=== PATIENT | female | born 1990 ===

== ENCOUNTER 2019-11-29 11:30 | Inpatient (IN) | payer SELFPAY ==
[2019-11-29] VITALS (8 sets, daily range): BP systolic 89–114; BP diastolic 53–79; PULSE 88–116; RESP 16–19; TEMP 36.7–37.6; O2SAT 95–99
--- NOTE | 2019-11-29 11:35 | ECG_ITS ---
[facility] Test Date: 2019-11-29 Pat Name: Misty Edwards Department: Room: Gender: Female Space [employer] Faculty Member: : 1990 Requested By: Suma Osborn Order Number: [id number] Garsia MD: Cheryl Quiroga M.D. Measurements Intervals [place] Rate: 101 P: 70 RI: 137 QRS: 65 QRSD: 95 T: 38 QT: 346 QTc: 449 Interpretive Statements SINUS TACHYCARDIA NONSPECIFIC ST & T-WAVE ABNORMALITY No previous ECG available for comparison Electronically Signed On 11-30-2019 7:53:36 CDT by Cheryl Quiroga M.D. [email or web address]
--- NOTE | 2019-11-29 11:36 | ED_ITS ---
HPI - General Adult General: Chief complaint: General Medical Stated complaint: ATE MUSHROOMS Time Seen by Provider: 11/29/19 11:31 Source: patient and EMS Mode of arrival: EMS Limitations: other (Patient withdrawn) History of Present Illness: HPI narrative: Misty is a nice 29-year-old female who comes in after she ingested mushrooms from the yard. Patient is homeless and stated that she took these to get hungry but then also quickly states she does not care if she dies. Patient stated she take the mushrooms between 7 and 830 this morning. About 40 minutes after ingesting the mushroom she began to feel nauseated and then 1 to 1-1/2 hours after she ingested them she began to have significant vomiting and diarrhea. She does not report any hallucinations, fever, chills, chest pain or shortness of breath. Patient does not report ingesting any other substances or drugs. Patient is very withdrawn and not very communicative. Associated symptoms: Reports nausea and vomiting; Deny chest pain, dyspnea, headache(s), rash, palpitations or syncope Review of Systems Const: Denies: fever(s) Eyes: Denies: change in vision or blurry vision ENMT: Denies: throat pain or hoarseness Card: Denies: chest pain, palpitations, syncope, pre-syncope or dyspnea on exertion Resp: Denies: dyspnea, productive cough or non-productive cough GI: Reports: abdominal pain, nausea, vomiting and diarrhea : Denies: flank pain, dysuria, urinary frequency or urinary urgency Musc: Denies: neck pain, back pain or extremity pain Skin/Breast: Denies: rash or pruritus Neuro: Denies: headache(s), numbness in extremities, weakness in extremities or dizziness [facility] ED PFSH: Medical History (Updated 11/29/19 @ 13:50 by Suma Faulkner) No pertinent past medical history Physical Exam Const: COMMON NORMALS: no acute distress, patient oriented x3, no limitations, healthy appearing and well nourished GENERAL APPEARANCE: cooperative, well kempt and well developed HENMT: COMMON NORMALS: normocephalic, atraumatic, external ears normal, EAC's normal and Normal external nose present HEAD & SCALP: normal to inspection, normocephalic and atraumatic FACE & SINUS: normal facial exam and face symmetric NOSE: Normal external nose present and Normal nares present EXTERNAL EAR: Yes external ears normal EXTERNAL AUDITORY CANAL: EAC's normal MOUTH: Normal oral and palatal mucosa present, lip normal and tongue normal Eye: COMMON NORMALS: Equal, round and reactive pupils present and conjunctivae normal GENERAL EYE: appearance normal, both eyes and all related structures ALIGNMENT: Yes alignment normal PERIORBITAL: periorbital findings normal EYELID: eyelids normal CONJUNCTIVA: Yes conjunctivae normal SCLERA: sclerae normal PUPIL: Yes Equal, round and reactive pupils present Neck/C-Spine: COMMON NORMALS: full ROM, no lymphadenopathy, supple, no meningeal signs and no JVD GENERAL: Yes normal visual inspection and Yes trachea midline Chest: COMMONS NORMALS: normal inspection of the chest and normal palpation of entire chest wall Resp: COMMON NORMALS: normal respiratory effort, No retractions, No use of accessory muscles and clear to auscultation bilaterally EFFORT & INSPECTION: Yes able to speak in complete sentences and Yes symmetric chest movement AUSCULTATION: clear to auscultation bilaterally, no crackles, no rales, no rhonchi and no wheezes Cardio: COMMON NORMALS: no JVD, regular rate, regular rhythm, S1 normal heart sound present and S2 normal heart sound present RATE: regular rate RHYTHM: regular rhythm HEART SOUNDS: S1 normal heart sound present, S2 normal heart sound present, no click, no gallops, no murmurs, no rubs and abnormal split S2 GI: COMMON NORMALS: Soft to palpation and No hepatosplenomegaly present PALPATION: Yes Soft to palpation, No Tenderness to palpation present (GI), No Guarding due to palpation present (GI), No Rigid due to palpation, Yes No hepatosplenomegaly present, No Hernia present, No Palpable mass present and No Pulsatile mass present : COMMON NORMALS: Yes no CVA tenderness BLADDER/KIDNEY EXAM: Yes no CVA tenderness EXTERNAL FEMALE EXAM: No Hernia present Back/Pelvis: COMMON NORMALS: no CVA tenderness, thoracic and lumbar spine normal to inspection, no thoracic nor lumbar tenderness and thoraco-lumbar ROM normal Extremity: COMMON NORMALS: normal to inspection, full ROM, capillary refill normal, no joint enlargement, no clubbing, cyanosis or edema and no calf tenderness Neuro: COMMON NORMALS: patient oriented x3, CN's II-XII intact bilaterally, moves all extremities, no focal motor deficits and no sensory deficits noted MENINGEAL SIGNS: Yes no meningeal signs SPEECH: speech normal Psych: COMMON NORMALS: mental status grossly normal, Normal thought process present, cooperative, normal affect, speech normal and activity/motor behavior normal APPEARANCE: Yes well kempt SPEECH: Yes normal speech THOUGHT PROCESS: Normal thought process present Skin: COMMON NORMALS: no rashes or lesions noted, turgor normal, no jaundice, no petechiae and no mottling GENERAL SKIN EXAM: no rashes or lesions noted and turgor normal Course Vital Signs: Vital signs: Vital Signs Temperature 98.1 F 11/29/19 11:31 Pulse Rate 107 H 11/29/19 12:25 Respiratory Rate 18 11/29/19 12:25 Blood Pressure 114/78 11/29/19 12:25 Pulse Oximetry 96 11/29/19 12:25 MDM - General Adult MDM Narrative: Medical decision making narrative: Misty's work-up here is unremarkable. She continues to have copious amount of diarrhea that is nonbloody. She has stopped vomiting. I reviewed the case with both Drs. Byrd and Dr. De La Vega. They agreed to admit and consult respectively. Concern at this time is that as she ate 2 different types of mushrooms that she may have a delayed onset and needs to be observed. Also with the amount of diarrhea that she is having she would not be a good candidate to go directly to the neuropsychiatric unit. Patient is continuously of IV fluids and she will go to the floor. She has been placed under 96-hour hold. Lab Data: Attestation: I reviewed the patient's lab results. Labs: Lab Results 11/29/19 11/29/19 11/29/19 Range/Units 11:40 11:40 11:40 WBC 4.0 (4.0-10.0) 10^3/ uL RBC 5.99 H (4.1-5.3) 10^6/u L Hgb 16.3 H (11.5-15.3) g/dL Hct 51.4 H (37.0-47.0) % MCV 85.8 (81-99) fL MCH 27.2 L (28.0-34.0) pg MCHC 31.7 (30.0-36.0) g/dL RDW 13.0 (12.1-15.1) % Plt Count 318 (130-400) 10^3/c mm MPV 11.7 H (7.4-10.4) fL Neut % (Auto) 77.1 % Lymph % (Auto) 19.5 % [place] % (Auto) 2.8 % Eos % (Auto) 0.3 % Baso % (Auto) 0.3 % Neut # (Auto) 3.08 (1.8-7.7) 10^3/u L Lymph # (Auto) 0.8 (0.8-4.8) 10^3/u L [place] # (Auto) 0.1 L (0.2-0.9) 10^3/u L Eos # (Auto) 0.0 (0.0-0.8) 10^3/u L Baso # (Auto) 0.0 (0.0-0.1) 10^3/u L Nucleated RBC % (a uto) 0 % Nucleated RBCs # 0.0 /100WBC PT 12.90 (12.1-14.9) SECO NDS INR 0.94 (0.8-1.2) APTT 26.3 (23.9-36.7) SECO NDS Specimen Type Sample Site ABG pH (7.35-7.45) ABG pCO2 (35-45) mmHg ABG pO2 (80.0-100.0) mmH g ABG HCO3 (22-26) mmol/L ABG O2 Saturation ABG Base Excess (-2.0-2.0) mmol/ L [place] Test A-a O2 Gradient (5-10) mmHg Hematocrit (37-47) % Hgb O2 Saturation (95-100) % Carboxyhemoglobin (0.4-20.1) %THgb Methemoglobin (0.4-1.5) % Total Hemoglobin (12-16) g/dL Ionized Calcium (1.1-1.4) mmol/L O2 Delivery Device FiO2 % Manager Presentation ID Sodium 143 (136-145) mmol/L Potassium 3.4 L (3.5-5.1) mmol/L Chloride 105 (98-107) mmol/L Carbon Dioxide 20 L (22-29) mmol/L Anion Gap 21.4 H (5-19) BUN 11 (6-20) mg/dL Creatinine 0.9 (0.5-0.9) mg/dL GFR Calculation 75.1 L (90-130) mL/min Glucose 101 (65-115) mg/dL Calculated Osmolal ity 292 (285-295) mOsm/k g Lactic Acid (0.5-2.2) mmol/L Calcium 10.6 H (8.5-10.5) mg/dL Magnesium 2.2 (1.7-2.3) mg/dL Total Bilirubin 1.2 (0.15-1.2) mg/dL AST 26 (0-32) U/L ALT 18 (0-33) U/L Alkaline Phosphata se 57 (35-105) IU/L Creatine Kinase 61 (26-192) U/L Total Protein 8.6 (6.6-8.7) g/dL Albumin 5.2 (3.5-5.2) g/dL Globulin 3.4 (1.3-4.6) g/dL Lipase 46 (13-60) U/L HCG, Qual (Negative) Salicylates < 0.3 L (3-10) mg/dL Acetaminophen < 5.0 L (10-30) ug/mL Phenytoin (10-20) ug/mL Valproic Acid (50-100) ug/mL Carbamazepine (4.0-12.0) ug/mL [place] (0.6-1.2) mmol/L Ethyl Alcohol < 10 (0-10) mg/dL Serum Ketones Negative (Negative) 11/29/19 11/29/19 11/29/19 Range/Units 11:40 11:50 11:50 WBC (4.0-10.0) 10^3/ uL RBC (4.1-5.3) 10^6/u L Hgb (11.5-15.3) g/dL Hct (37.0-47.0) % MCV (81-99) fL MCH (28.0-34.0) pg MCHC (30.0-36.0) g/dL RDW (12.1-15.1) % Plt Count (130-400) 10^3/c mm MPV (7.4-10.4) fL Neut % (Auto) % Lymph % (Auto) % [place] % (Auto) % Eos % (Auto) % Baso % (Auto) % Neut # (Auto) (1.8-7.7) 10^3/u L Lymph # (Auto) (0.8-4.8) 10^3/u L [place] # (Auto) (0.2-0.9) 10^3/u L Eos # (Auto) (0.0-0.8) 10^3/u L Baso # (Auto) (0.0-0.1) 10^3/u L Nucleated RBC % (a uto) % Nucleated RBCs # /100WBC PT (12.1-14.9) SECO NDS INR (0.8-1.2) APTT (23.9-36.7) SECO NDS Specimen Type Sample Site ABG pH (7.35-7.45) ABG pCO2 (35-45) mmHg ABG pO2 (80.0-100.0) mmH g ABG HCO3 (22-26) mmol/L ABG O2 Saturation ABG Base Excess (-2.0-2.0) mmol/ L [place] Test A-a O2 Gradient (5-10) mmHg Hematocrit (37-47) % Hgb O2 Saturation (95-100) % Carboxyhemoglobin (0.4-20.1) %THgb Methemoglobin (0.4-1.5) % Total Hemoglobin (12-16) g/dL Ionized Calcium (1.1-1.4) mmol/L O2 Delivery Device FiO2 % Manager Presentation ID Sodium (136-145) mmol/L Potassium (3.5-5.1) mmol/L Chloride (98-107) mmol/L Carbon Dioxide (22-29) mmol/L Anion Gap (5-19) BUN (6-20) mg/dL Creatinine (0.5-0.9) mg/dL GFR Calculation (90-130) mL/min Glucose (65-115) mg/dL Calculated Osmolal ity (285-295) mOsm/k g Lactic Acid 1.9 (0.5-2.2) mmol/L Calcium (8.5-10.5) mg/dL Magnesium (1.7-2.3) mg/dL Total Bilirubin (0.15-1.2) mg/dL AST (0-32) U/L ALT (0-33) U/L Alkaline Phosphata se (35-105) IU/L Creatine Kinase (26-192) U/L Total Protein (6.6-8.7) g/dL Albumin (3.5-5.2) g/dL Globulin (1.3-4.6) g/dL Lipase (13-60) U/L HCG, Qual Negative (Negative) Salicylates (3-10) mg/dL Acetaminophen (10-30) ug/mL Phenytoin 0.8 L (10-20) ug/mL Valproic Acid 2.8 L (50-100) ug/mL Carbamazepine 2.0 L (4.0-12.0) ug/mL [place] 0.1 L (0.6-1.2) mmol/L Ethyl Alcohol (0-10) mg/dL Serum Ketones (Negative) 11/29/19 Range/Units 12:05 WBC (4.0-10.0) 10^3/ uL RBC (4.1-5.3) 10^6/u L Hgb (11.5-15.3) g/dL Hct (37.0-47.0) % MCV (81-99) fL MCH (28.0-34.0) pg MCHC (30.0-36.0) g/dL RDW (12.1-15.1) % Plt Count (130-400) 10^3/c mm MPV (7.4-10.4) fL Neut % (Auto) % Lymph % (Auto) % [place] % (Auto) % Eos % (Auto) % Baso % (Auto) % Neut # (Auto) (1.8-7.7) 10^3/u L Lymph # (Auto) (0.8-4.8) 10^3/u L [place] # (Auto) (0.2-0.9) 10^3/u L Eos # (Auto) (0.0-0.8) 10^3/u L Baso # (Auto) (0.0-0.1) 10^3/u L Nucleated RBC % (a uto) % Nucleated RBCs # /100WBC PT (12.1-14.9) SECO NDS INR (0.8-1.2) APTT (23.9-36.7) SECO NDS Specimen Type Arterial Sample Site Brachial, right ABG pH 7.36 (7.35-7.45) ABG pCO2 26.5 L (35-45) mmHg ABG pO2 106.0 H (80.0-100.0) mmH g ABG HCO3 15.0 L (22-26) mmol/L ABG O2 Saturation 98.9 ABG Base Excess -8.3 L (-2.0-2.0) mmol/ L [place] Test Pos A-a O2 Gradient 1.3 L (5-10) mmHg Hematocrit 52.9 H (37-47) % Hgb O2 Saturation 97.5 (95-100) % Carboxyhemoglobin 0.8 (0.4-20.1) %THgb Methemoglobin 0.5 (0.4-1.5) % Total Hemoglobin 17.3 H (12-16) g/dL Ionized Calcium 1.3 (1.1-1.4) mmol/L O2 Delivery Device Room air FiO2 21.0 % Manager Presentation ID [place] Sodium 141.0 (136-145) mmol/L Potassium 3.5 (3.5-5.1) mmol/L Chloride (98-107) mmol/L Carbon Dioxide (22-29) mmol/L Anion Gap (5-19) BUN (6-20) mg/dL Creatinine (0.5-0.9) mg/dL GFR Calculation (90-130) mL/min Glucose 98.0 (65-115) mg/dL Calculated Osmolal ity (285-295) mOsm/k g Lactic Acid (0.5-2.2) mmol/L Calcium (8.5-10.5) mg/dL Magnesium (1.7-2.3) mg/dL Total Bilirubin (0.15-1.2) mg/dL AST (0-32) U/L ALT (0-33) U/L Alkaline Phosphata se (35-105) IU/L Creatine Kinase (26-192) U/L Total Protein (6.6-8.7) g/dL Albumin (3.5-5.2) g/dL Globulin (1.3-4.6) g/dL Lipase (13-60) U/L HCG, Qual (Negative) Salicylates (3-10) mg/dL Acetaminophen (10-30) ug/mL Phenytoin (10-20) ug/mL Valproic Acid (50-100) ug/mL Carbamazepine (4.0-12.0) ug/mL [place] (0.6-1.2) mmol/L Ethyl Alcohol (0-10) mg/dL Serum Ketones (Negative) EKG Data^: EKG 1: Attestation: I personally reviewed and interpreted this EKG as follows: EKG interpretation date: 11/29/19 EKG interpretation time: 11:52 Interpretation: Normal sinus rhythm at 101 beats a minute, no blocks, normal intervals, nonspecific ST-T wave changes. Discharge Plan Discharge Patient Disposition: Admitted As Inpatient Admit Provider: Esme Byrd Clinical Impression: Mushroom poisoning Condition: Stable Coding Level of Care Code ED Linen Sorter for Chg Fwd Exam Comprehensive
[2019-11-29 12:00] LABS: Basophils % 0.3 %; Eosinophils % 0.3 %; Hematocrit 51.4 % (37.0-47.0); Hemoglobin 16.3 g/dL (11.5-15.3); Lymphocytes # 0.8 10^3/uL (0.8-4.8); Lymphocytes % 19.5 %; Mean Corpuscular HGB Conc 31.7 g/dL (30.0-36.0); Mean Corpuscular Hemoglobin 27.2 pg (28.0-34.0); Mean Corpuscular Volume 85.8 fL (81-99); Mean Platelet Volume 11.7 fL (7.4-10.4); Monocytes # 0.1 10^3/uL (0.2-0.9); Monocytes % 2.8 %; Neutrophils # 3.08 10^3/uL (1.8-7.7); Neutrophils % 77.1 %; Nucleated Red Blood Cells % 0 %; Platelet Count 318 10^3/cmm (130-400); Red Blood Count 5.99 10^6/uL (4.1-5.3)
[2019-11-29 12:14] LABS: INR 0.94 (0.8-1.2)
[2019-11-29 12:15] LABS: Partial Thromboplastin Time 26.3 SECONDS (23.9-36.7)
[2019-11-29 12:18] LABS: Alanine Aminotransferase 18 U/L (0-33); Albumin Level 5.2 g/dL (3.5-5.2); Alkaline Phosphatase 57 IU/L (35-105); Blood Urea Nitrogen 11 mg/dL (6-20); Calcium 10.6 mg/dL (8.5-10.5); Carbon Dioxide 20 mmol/L (22-29); Chloride 105 mmol/L (98-107); Creatine Phosphokinase 61 U/L (26-192); Globulin 3.4 g/dL (1.3-4.6); Glomerular Filtration Rate 75.1 mL/min (90-130); Glucose 101 mg/dL (65-115); Ketone (Acetest) Serum Negative (Negative); Lipase 46 U/L (13-60); Magnesium 2.2 mg/dL (1.7-2.3); Osmolality Calculated 292 mOsm/kg (285-295); Sodium 143 mmol/L (136-145); Total Bilirubin 1.2 mg/dL (0.15-1.2); Total Protein 8.6 g/dL (6.6-8.7)
[2019-11-29 12:19] LABS: Lactic Sepsis W/Reflex 1.9 mmol/L (0.5-2.2)
[2019-11-29 12:19] LABS: ABG PCO2 26.5 mmHg (35-45); ABG PH Result 7.36 (7.35-7.45); Alveolar-Arterial Oxygen Gradi 1.3 mmHg (5-10); Arterial Blood Gas Hematocrit 52.9 % (37-47); Base Excess ABG -8.3 mmol/L (-2.0-2.0); Blood Gas Allen Test Pos; Blood Gas Operator Identificat MONRO; Blood Gas Sample Site Brachial, right; Blood Gas Sample Type Arterial; Carboxyhemoglobin 0.8 %THgb (0.4-20.1); HGB O2 Sat 97.5 % (95-100); Ionized Calcium Level - ABG 1.3 mmol/L (1.1-1.4); Methemoglobin 0.5 % (0.4-1.5); Oxygen Device ROOM AIR; Oxygen Saturation ABG 98.9; Potassium Level - ABG 3.5 mmol/L (3.5-5.0); Total Hemoglobin 17.3 g/dL (12-16)
[2019-11-29 12:20] LABS: HCG, Serum Qual Negative (Negative)
[2019-11-29 12:24] LABS: Acetaminophen < 5.0 ug/mL (10-30); Alcohol Level < 10 mg/dL (0-10); Salicylate < 0.3 mg/dL (3-10)
[2019-11-29] MEDS: sodium chloride 0.9% 1,000 ML 999 ML IV (12:24)
[2019-11-29] MEDS: sodium chloride 0.9% 1,000 ML 100 ML IV (12:24)
[2019-11-29 12:25] LABS: Anion Gap 21.4 (5-19); Aspartate Amino Transferase 26 U/L (0-32); Potassium 3.4 mmol/L (3.5-5.1)
[2019-11-29 12:29] LABS: Lithium 0.1 mmol/L (0.6-1.2); Phenytoin Dilantin 0.8 ug/mL (10-20); Valproic Acid Level 2.8 ug/mL (50-100)
[2019-11-29] MEDS: lactated ringers 1,000 ML 999 ML IV ×2 (13:10)
--- NOTE | 2019-11-29 13:20 | PC.NURSE ---
Patient refused IV k d/t pain, order received for PO K 40meq.
[2019-11-29] MEDS: potassium chloride ER 10 mEq Tablet 40 MEQ PO (13:27)
--- NOTE | 2019-11-29 16:10 | PM.PSYCN ---
Providers/Reason for Consult Consulting Physican/Specialty*: Ceferino De La Vega M.D./Psychiatry Reason for Consult*: Ingested poisonous mushrooms, stated she does not care if she dies. Attending Physician: Esme Byrd MD Psych Consult HPI History of Present Illness Misty Edwards is a 29 year old female who has been homeless for a long time. She is wandered from the [facility] down here. She has had she had certain issues. I asked her what they might be (e. g., chronic psychiatric illness for example, addiction, etc.) and she said, I want to talk about that right now. She would not even discuss her statement to Dr. Kearney about not caring if she lived or . I reviewed the poison control printout on mushrooms. She is probably going to be ready to come down tomorrow and I confirmed that with Dr. Byrd. Review of Systems Narrative: Const: Denies: fever(s) Eyes: Denies: change in vision or blurry vision ENMT: Denies: throat pain or hoarseness Card: Denies: chest pain, palpitations, syncope, pre-syncope or dyspnea on exertion Resp: Denies: dyspnea, productive cough or non-productive cough GI: Reports: abdominal pain, nausea, vomiting and diarrhea : Denies: flank pain, dysuria, urinary frequency or urinary urgency Musc: Denies: neck pain, back pain or extremity pain Skin/Breast: Denies: rash or pruritus Neuro: Denies: headache(s), numbness in extremities, weakness in extremities or dizziness Meds Current Medications: Current Medications Generic Name Dose Route Start Last Admin Trade Name Freq PRN Reason Stop Dose Admin Sodium Chloride 1,000 mls @ 100 m ls/hr 11/29/19 11:45 11/29/19 12:24 Sodium Chloride 0.9% IV 100 mls/hr .Q10H FELIPA Administration PFSH NPU PFSH: Medical History (Updated 11/29/19 @ 16:32 by Ceferino De La Vega) Depressive disorder, not elsewhere classified No pertinent past medical history Other Psychiatric History: Other Psychiatric History: The patient said she did have treatment in the past but is unwilling to discuss this in detail. I told her would be bringing her down to psychiatry and she is accepting of this. Mental Status Exam MSE Comments: This is a 29-year-old female who is well-kempt, cooperative and without any agitation or bizarre behavioral indicia. Mood appears to be despondent without any agitation. Affect is flat to the point of numbness. Thought processes are integrated and free of any racing, blocking or looseness of association. I do not see overt symptoms of psychosis, such as hallucination, delusion or ideas of reference. However she is very guarded and restricts what she reveals about herself. She may be severely schizoid or even paranoid delusional disorder but who knows? More time with this patient is definitely warranted. She may have significant insight and judgment. It is difficult to discern at this time, when life itself is of no import to her. Vitals/I&O/Wt Last Vital Signs Temp 98.4 F 11/29/19 15:11 Pulse 104 H 11/29/19 15:11 Resp 18 11/29/19 15:11 BP 98/58 11/29/19 15:11 Pulse Ox 96 11/29/19 15:11 11/29/19 11/29/19 11/29/19 07:59 15:59 23:59 Intake Total 1007.5 Balance 1007.5 Weight last 48 hrs Weight 169 lb A&P Assessment and plan (1) Depressive disorder, not elsewhere classified: Further diagnostic interviews and formulation of a treatment plan are indicated. The risk to her is unknown but not zero. Accordingly, Dr. Kearney's affidavit is wholly appropriate and we will be happy to accept her on psychiatry once she is medically stable. Status: Acute (2) Mushroom poisoning: The patient is in good hands, managed by Dr. Byrd Status: Acute Qualifiers: Encounter type: initial encounter Injury intent: undetermined intent Qualified Code(s): T62.0X4A - Toxic effect of ingested mushrooms, undetermined, initial encounter Involuntary Hold Information 96 Hour Hold: Comments: Dr. Kearney has made out an affidavit. Attestations NPU Medical Necessity Statement*: This is a mystery wrapped in a conundrum hidden within an enigma. I anticipate at least 7 midnights additional hospital stay. Time Spent in Patient Care: Greater than 35 minutes (>than 50% of time spent in counselling and/or direct pt care on unit). Coding Level of Care Code Acute Portfolio Management Marketing for Chg Fwd Diagnoses Depressive disorder, not elsewhere classified F32.9 Mushroom poisoning T62.0X4A Encounter type: initial encounter Injury intent: undetermined intent
--- NOTE | 2019-11-29 16:27 | P.HP_ITS ---
Providers/Chief Complaint Admitting Physician: Esme Byrd MD Chief Complaint: ATE MUSHROOMS History of Present Illness Misty Edwards is a 29 year old female without any known past medical comorbidities, currently homeless due to a strained relationship with her father and states that when she does not live with him. She said she was feeling hungry today, saw some mushrooms growing in her garden and decided to eat them. She did not collect them. She did not wash them. She has never taken these before. Shortly thereafter she started to feel sick with multiple episodes of vomiting diarrhea and abdominal pain which felt as cramping pain. She presented to the ER because of these symptoms. She was dehydrated upon presentation with poor skin turgor. Her blood pressure has been systolic in the 90s and tachycardic with heart rate around 100-1 20. She was noted to have hemoglobin of 16.3, likely secondary to concentration from GI losses. Mild hypokalemia with potassium 3.4. Anion gap of 21.4 and metabolic acidosis on labs. Calcium is mildly elevated at 10.6. Serum ketones are negative. Ethyl alcohol level less than 10. Urine drug screen remains pending. Review of Systems General: Reports: 10 or more systems reviewed and unremarkable except in HPI and below Const: Denies: fever(s), chills or body aches Eyes: Denies: change in vision, blurry vision or photophobia ENMT: Reports: hoarseness; Denies: throat pain, enlarged tonsils, odynophagia or nasal congestion Card: Denies: chest pain, palpitations, irregular heart rhythm, edema, swelling of feet/ankles, lightheadedness, pre-syncope, dyspnea on exertion or orthopnea Resp: Denies: dyspnea, productive cough, non-productive cough, wheezing, stridor, pain on inspiration, change in phlegm color, hemoptysis or chest congestion GI: Denies: abdominal pain, nausea, vomiting, hematemesis, coffee ground emesis, dysphagia, heartburn, diarrhea, constipation, GI cramping, change in stool character, hematochezia or melena : Denies: flank pain, difficulty voiding, dysuria, urinary frequency, urinary urgency, urinary hesitancy or hematuria Musc: Denies: neck pain, back pain, extremity pain, joint swelling, joint warmth or deformity Neuro: Denies: headache(s), numbness in extremities, weakness in extremities, sensory changes, difficulty walking, frequent falls, dizziness, vertigo, behavioral changes, Slurred speech present or seizure-like activity Psych: Denies: anxiety, depression, suicidal ideation or homicidal ideation Endo: Denies: polyuria, polydipsia, tired all the time, cold intolerance or hot flashes Keegan/Lymph: Denies: easy bruising or easy bleeding Medications/Allergies Home Medications Medication Instructions Recorded Confirmed Last Taken Type No Known Home Medications 11/29/19 11/29/19 Unknown History Allergies Allergy/AdvReac Type Severity Reaction Status Date / Time No Known Allergies Allergy Unverified 11/29/19 12:43 PFSH Acute PFSH: Medical History No pertinent past medical history Female Reproductive History: Date of last menstrual period: 11/17/19 Vitals/I&O/Wt Last Vital Signs Temp 98.4 F 11/29/19 15:11 Pulse 104 H 11/29/19 15:11 Resp 18 11/29/19 15:11 BP 98/58 11/29/19 15:11 Pulse Ox 96 11/29/19 15:11 11/29/19 11/29/19 11/29/19 06:59 14:59 22:59 Intake Total 1007.5 / 1007.5 Balance 1007.5 / 1007.5 Weight last 48 hrs Weight 76.657 kg Physical Exam Narrative: EXAM NARRATIVE: GEN: Awake, alert and oriented, no acute distress, dehydrated, disheveled CVS: S1S2 N RS: CTA B/L Abd: Soft, nt/nd , bs+ NARCOTICS AGENT: no focal neuro deficits Data : 11/29/19 11:40 11/29/19 11:40 A&P Assessment and plan (1) Mushroom poisoning: Status: Acute Qualifiers: Encounter type: initial encounter Injury intent: undetermined intent Qualified Code(s): T62.0X4A - Toxic effect of ingested mushrooms, undetermined, initial encounter Additional A&P Information # Acute gastroenteritis vs mushroom poisoning Continue supportive care with IV hydration. Continue fluids with D5 half NS with added KCl. Zofran for nausea control Check enteric panel and C. difficile PCR, patient has not had any current bowel movement since moving up to the floors. Lactic acidosis and high anion gap likely secondary to dehydration, expected to improve with hydration. Recheck labs in the a.m. Denies any suicidal ideation, however states that she may have been passively trying to harm herself. Dr. De La Vega was consulted from the ER and has evaluated the patient. Plan is to transfer her to n.p.o. once she is stable from a medicine perspective. Full code DVT ppx: low risk Attestations Medical Necessity Statement*: less than one midnight anticipated for management of acute gastroenteritis, iv hydration Coding Level of Care Code Acute Motors And Generators Inspector for [facility] Fwd Diagnoses Mushroom poisoning T62.0X4A Encounter type: initial encounter Injury intent: undetermined intent
[2019-11-29] MEDS: ondansetron 4 MG Tablet PO (17:13)
[2019-11-29] MEDS: D5-NS 0.45% + KCL 20 mEq 20 MEQ/1,000 ML BAG 100 MEQ IV (17:16)
[2019-11-29 18:11] LABS: Urine Appearance SL Hazy (CLEAR); Urine Color Yellow (Yellow); pH Urine 5 (5-7)
[2019-11-29 18:12] LABS: Add Urine Microscopic? YES; Bilirubin Urine 1+ (NEGATIVE); Blood Urine Neg (Negative); Glucose Urine UA Norm (Normal); Ketones Urine 3+ (Negative); Leukocyte Esterase Urine 1+ (Negative); Nitrate Urine Negative (Negative); Protein Urine Neg (Negative); Urobilinogen Urine Norm (Negative)
[2019-11-29 18:13] LABS: Add Urine Culture? No; Amphetamines Screen Urine Negative (Negative); Bacteria Urine 2+; Barbiturates Screen Urine Negative (Negative); Benzodiazepines Screen Urine Negative (Negative); Cocaine Screen Urine Negative (Negative); Opiate Screen Urine Negative (Negative); PCP Screen Urine Negative (Negative); THC Screen Urine Negative (Negative)
[2019-11-30] VITALS: BP 91/55; PULSE 87; RESP 19; TEMP 37; O2SAT 96
[2019-11-30] MEDS: ondansetron 2 mg/ML SDV 2 mL 4 MG IVP (00:22)
[2019-11-30 03:54] VITALS: BP 94/58; PULSE 97; RESP 20; TEMP 37.2; O2SAT 95
[2019-11-30] MEDS: D5-NS 0.45% + KCL 20 mEq 20 MEQ/1,000 ML BAG 100 MEQ IV (04:35)
[2019-11-30 05:37] LABS: Basophils % 0.2 %; Eosinophils % 0.1 %; Hemoglobin 12.6 g/dL (11.5-15.3); Lymphocytes # 0.6 10^3/uL (0.8-4.8); Lymphocytes % 6.6 %; Mean Corpuscular HGB Conc 32.3 g/dL (30.0-36.0); Mean Corpuscular Hemoglobin 27.2 pg (28.0-34.0); Mean Corpuscular Volume 84.1 fL (81-99); Mean Platelet Volume 10.8 fL (7.4-10.4); Monocytes # 0.4 10^3/uL (0.2-0.9); Monocytes % 4.2 %; Neutrophils # 7.97 10^3/uL (1.8-7.7); Neutrophils % 88.6 %; Nucleated Red Blood Cells % 0 %; Platelet Count 239 10^3/cmm (130-400); Red Blood Count 4.64 10^6/uL (4.1-5.3)
[2019-11-30 05:56] LABS: Lactic Sepsis W/Reflex 1.2 mmol/L (0.5-2.2)
[2019-11-30 06:03] LABS: Alanine Aminotransferase 10 U/L (0-33); Albumin Level 3.3 g/dL (3.5-5.2); Alkaline Phosphatase 28 IU/L (35-105); Anion Gap 10.8 (5-19); Aspartate Amino Transferase 14 U/L (0-32); Blood Urea Nitrogen 8 mg/dL (6-20); Calcium 7.6 mg/dL (8.5-10.5); Carbon Dioxide 21 mmol/L (22-29); Chloride 109 mmol/L (98-107); Globulin 1.9 g/dL (1.3-4.6); Glucose 126 mg/dL (65-115); Osmolality Calculated 281 mOsm/kg (285-295); Potassium 3.8 mmol/L (3.5-5.1); Sodium 137 mmol/L (136-145); Total Bilirubin 0.6 mg/dL (0.15-1.2); Total Protein 5.2 g/dL (6.6-8.7)
[2019-11-30 07:13] VITALS: BP 84/49; PULSE 95; RESP 16; TEMP 37.1; O2SAT 95
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
[2019-11-30] MEDS: multivitamin therapeutic Tablet 1 TAB PO (08:22)
[2019-11-30] MEDS: thiamine 100 mg Tablet PO (08:22)
--- NOTE | 2019-11-30 08:28 | PM.PN ---
Subjective Subjective: Interval history: Is awake, alert. Is not having any pain. Ate dinner last night. Does still have diarrhea. No N/V. Vitals/I&O/Wt Last Vital Signs Temp 98.8 F 11/30/19 07:13 Pulse 95 11/30/19 07:13 Resp 16 11/30/19 07:13 BP 84/49 11/30/19 07:13 Pulse Ox 95 11/30/19 07:13 11/29/19 11/30/19 11/30/19 22:59 06:59 14:59 Intake Total 400 / 1407.5 1000 / 2407.5 Output Total 900 / 900 Balance 400 / 1407.5 100 / 1507.5 Weight last 48 hrs Weight 76.657 kg Physical Exam Const: COMMON NORMALS: no acute distress and patient oriented x3 HENMT: COMMON NORMALS: oropharynx normal Neck/C-Spine: COMMON NORMALS: no JVD Resp: COMMON NORMALS: normal respiratory effort and clear to auscultation bilaterally AUSCULTATION: clear to auscultation bilaterally Cardio: COMMON NORMALS: no JVD, regular rhythm, S1 normal heart sound present, S2 normal heart sound present and No murmurs present (Cardio) RHYTHM: regular rhythm HEART SOUNDS: S1 normal heart sound present and S2 normal heart sound present GI: COMMON NORMALS: Normal to inspection, nondistended, normoactive bowel sounds present, Soft to palpation and non-tender PALPATION: Yes Soft to palpation Extremity: COMMON NORMALS: no joint enlargement and no pedal edema Neuro: COMMON NORMALS: patient oriented x3 and moves all extremities Skin: COMMON NORMALS: no rashes or lesions noted GENERAL SKIN EXAM: no rashes or lesions noted Data : 11/30/19 05:19 11/30/19 05:19 Micro: Microbiology 11/29/19 19:50 C.difficile Toxin B Gene (PCR) - Final Stool - Stool Aspirate A&P Assessment and plan (1) Mushroom poisoning: Possible gastroenteritis versus mushroom poisoning. This morning she is lucid. No nausea or vomiting. Did tolerate dinner yesterday. Does have diarrhea still today. Enteric bacterial panel is pending. Added parasite panel. Diet advanced to regular. Continue as tolerating. Encourage oral hydration. IV fluids may be discontinued. She would like to take a shower. Discussed with psychiatry, and may transfer for additional assessment on your psychiatric unit this morning due to concern for possible self-harm at the time of admission. Status: Acute Qualifiers: Encounter type: initial encounter Injury intent: undetermined intent Qualified Code(s): T62.0X4A - Toxic effect of ingested mushrooms, undetermined, initial encounter Additional A&P Information Depression Attestations Medical Necessity Statement*: Continue additional assessment on neuropsychiatric unit. Coding Level of Care Code Acute Biomedical Equipment Support Specialist for [facility] Fwd Exam Comprehensive Diagnoses Mushroom poisoning T62.0X4A Encounter type: initial encounter Injury intent: undetermined intent
--- NOTE | 2019-11-30 09:00 | PC.NURSE ---
Report called to Dona RAMIREZ in NPU.
--- NOTE | 2019-11-30 09:40 | PC.NURSE ---
Security to floor to transfer patient to NPU. Patient transferred via wheelchair.
[2019-11-30 09:54] VITALS: BP 104/70; PULSE 59; RESP 18; TEMP 37; O2SAT 97
[2019-11-30 14:00] VITALS: BP 100/61; PULSE 89; RESP 18; TEMP 36.8; O2SAT 95
[2019-11-30 20:58] VITALS: BP 117/75; PULSE 85; RESP 16; TEMP 36.7; O2SAT 95
[2019-12-01 06:00] VITALS: BP 90/59; PULSE 77; RESP 18; TEMP 36.9; O2SAT 97
[2019-12-01] MEDS: thiamine 100 mg Tablet PO (10:09)
[2019-12-01] MEDS: multivitamin therapeutic Tablet 1 TAB PO (10:09)
[2019-12-01 13:47] VITALS: BP 87/51; PULSE 72; RESP 18; TEMP 37.1; O2SAT 97
--- NOTE | 2019-12-01 15:32 | PM.NPN ---
Subjective NPU Subjective: Interval history: The patient today spars with me regarding psychotropic derivatives, about which she knows nothing. She is completely immersed in a philosophy of natural herbs and healing materials which have not been reviewed in the literature. I do not have any problems with that except, when asked if she has changed her feeling about living or dying, she answers, no. I can just see her leaving here and munching on the first mushrooms she comes upon. I consider her high risk. Medications: Reviewed: Yes Medication Review Details: Current Medications Acetaminophen (Tylenol) 650 mg PO Q4H PRN PRN Reason: MILD PAIN Benztropine Mesylate (Cogentin) 1 mg PO BID PRN PRN Reason: Mild Extrapyramidal symptoms Camphor/Menthol/Phenol (Blistex) 1 applic TOPICAL Q1H PRN PRN Reason: DRYNESS Diphenhydramine HCl (Benadryl) 50 mg IM ONCE PRN PRN Reason: Severe Extrapyramidal Symptoms Diphenhydramine HCl (Benadryl) 50 mg IM Q4H PRN PRN Reason: Severe Aggression Haloperidol (Haldol) 5 mg PO Q4H PRN PRN Reason: AGITATION Haloperidol Lactate (Haldol Inj) 5 mg IM Q4H PRN PRN Reason: Severe Aggression Hydroxyzine Pamoate (Vistaril) 50 mg PO Q6H PRN PRN Reason: ANXIETY Loperamide HCl (Imodium Capsule) 2 mg PO Q6H PRN PRN Reason: DIARRHEA Lorazepam (Ativan) 2 mg IM Q4H PRN PRN Reason: Severe Aggression Multivitamins Therapeutic (Multivitamin Tab) 1 tab PO DAILY [facility] Last Admin: 12/01/19 10:09 Dose: 1 tab Documented by: Nicotine (Nicoderm 21 Mg Patch) 1 patch TRANSDERMA DAILY PRN PRN Reason: NICOTINE WITHDRAWAL Nicotine Polacrilex (Nicorette) 2 mg BUCCAL Q2H PRN PRN Reason: NICOTINE WITHDRAWAL Olanzapine (Zyprexa Zydis) 5 mg PO Q4H PRN PRN Reason: Agitation/Psychosis Ondansetron HCl (Zofran) 4 mg PO Q8H PRN PRN Reason: NAUSEA Last Admin: 11/29/19 17:13 Dose: 4 mg Documented by: Thiamine Mononitrate (Vitamin B-1) 100 mg PO DAILY [facility] Last Admin: 12/01/19 10:09 Dose: 100 mg Documented by: Trazodone HCl (Desyrel) 50 mg PO BEDTIME PRN PRN Reason: SLEEP Mental Status Exam MSE Comments: Mood is calm and affect is flat. Thought processes are integrated and free of any racing, blocking or looseness of association. She is passive-aggressive today. Speech is of normal rate and volume, without dysarthria, aprosody or pressure. There is no evidence of psychosis, such as hallucinations, delusions or ideas of reference. She now is cognitively intact and very bright but sees no virtue in survival. She was never homicidal. She is harbors her subtle suicidal ideation and hasn't the insight and judgment for safety. She exhibits no odd behavior. Vitals/I&O/Wt Last Vital Signs Temp 98.7 F 12/01/19 13:47 Pulse 72 12/01/19 13:47 Resp 18 12/01/19 13:47 BP 87/51 12/01/19 13:47 Pulse Ox 97 12/01/19 13:47 Data NPU : 11/30/19 05:19 11/30/19 05:19 Micro: Microbiology 11/29/19 19:50 Parasite Antigen Panel - Final Stool - Stool Aspirate 11/29/19 19:50 Enteric Pathogens (PCR) - Final Stool - Stool Aspirate C.difficile Toxin B Gene (PCR) - Final Microbiology 11/29/19 19:50 Stool - Stool Aspirate Parasite Antigen Panel - Final 11/29/19 19:50 Stool - Stool Aspirate Enteric Pathogens (PCR) - Final 11/29/19 19:50 Stool - Stool Aspirate C.difficile Toxin B Gene (PCR) - Final Involuntary Hold Information 96 Hour Hold: 96 Hour Involuntary Admission: Yes 96 Hour Hold Ending Date: 12/04/19 96 Hour Hold Ending Time: 12:00 Attestations NPU Medical Necessity Statement*: I anticipate 5-7 midnights additional hospitalization. Time Spent in Patient Care: Greater than 35 minutes (>than 50% of time spent in counselling and/or direct pt care on unit). Coding Level of Care Code Acute Route Returner for Bunny [facility]
--- NOTE | 2019-12-01 18:58 | PM.PN ---
Subjective Subjective: Interval history: She reports she is doing well. Occasionally still feeling some gurgling in her belly, but so far has not had any further diarrhea. Denies any belly pain. No vomiting. Vitals/I&O/Wt Last Vital Signs Temp 98.7 F 12/01/19 13:47 Pulse 72 12/01/19 13:47 Resp 18 12/01/19 13:47 BP 87/51 12/01/19 13:47 Pulse Ox 97 12/01/19 13:47 Physical Exam Const: COMMON NORMALS: no acute distress and patient oriented x3 HENMT: COMMON NORMALS: oropharynx normal Neck/C-Spine: COMMON NORMALS: no JVD Resp: COMMON NORMALS: normal respiratory effort and clear to auscultation bilaterally AUSCULTATION: clear to auscultation bilaterally Cardio: COMMON NORMALS: no JVD, regular rhythm, S1 normal heart sound present, S2 normal heart sound present and No murmurs present (Cardio) RHYTHM: regular rhythm HEART SOUNDS: S1 normal heart sound present and S2 normal heart sound present GI: COMMON NORMALS: Normal to inspection, nondistended, normoactive bowel sounds present, Soft to palpation and non-tender PALPATION: Yes Soft to palpation Extremity: COMMON NORMALS: no joint enlargement and no pedal edema Neuro: COMMON NORMALS: patient oriented x3 and moves all extremities Skin: COMMON NORMALS: no rashes or lesions noted GENERAL SKIN EXAM: no rashes or lesions noted Data : 11/30/19 05:19 11/30/19 05:19 Micro: Microbiology 11/29/19 19:50 Parasite Antigen Panel - Final Stool - Stool Aspirate A&P Assessment and plan (1) Mushroom poisoning: Possible gastroenteritis versus mushroom poisoning appears to be improved. So far no further diarrhea. No abdominal pain. No vomiting, tolerating oral diet. C. difficile, enteric bacterial and parasite panels have been negative. She was interested in what specific parasites were negative. Continue as tolerating. Encourage oral hydration. Continue assessment and management per neuropsychiatric team as to concerns regarding any self-harm and risk of further current consumption of unidentified mushrooms. She appears to be stable from medical perspective, and so we will sign off at this time. Call anytime with any questions or concerns. Status: Acute Qualifiers: Encounter type: initial encounter Injury intent: undetermined intent Qualified Code(s): T62.0X4A - Toxic effect of ingested mushrooms, undetermined, initial encounter Additional A&P Information Depression Attestations Medical Necessity Statement*: Continue admission for further assessment management on your psychiatric unit regarding concerns of suicidal ideation. Coding Level of Care Code Acute Electric Tripper Machine Operator for [facility] Diagnoses Mushroom poisoning T62.0X4A Encounter type: initial encounter Injury intent: undetermined intent
[2019-12-01 21:10] VITALS: BP 90/59; PULSE 84; RESP 18; TEMP 37.1; O2SAT 98
[2019-12-02 06:00] VITALS: BP 101/65; PULSE 78; RESP 17; TEMP 36.9; O2SAT 99
[2019-12-02] MEDS: thiamine 100 mg Tablet PO (08:46)
[2019-12-02] MEDS: multivitamin therapeutic Tablet 1 TAB PO (08:46)
--- NOTE | 2019-12-02 10:21 | P.PN_ITS ---
Subjective NPU Subjective: Interval history: The patient seems to be less withdrawn today. She smiles and is able to see the humor and some of her situation. She can look at me on the eye and we actually hold a conversation. Medications: Reviewed: Yes Medication Review Details: Current Medications Acetaminophen (Tylenol) 650 mg PO Q4H PRN PRN Reason: MILD PAIN Benztropine Mesylate (Cogentin) 1 mg PO BID PRN PRN Reason: Mild Extrapyramidal symptoms Camphor/Menthol/Phenol (Blistex) 1 applic TOPICAL Q1H PRN PRN Reason: DRYNESS Diphenhydramine HCl (Benadryl) 50 mg IM ONCE PRN PRN Reason: Severe Extrapyramidal Symptoms Diphenhydramine HCl (Benadryl) 50 mg IM Q4H PRN PRN Reason: Severe Aggression Haloperidol (Haldol) 5 mg PO Q4H PRN PRN Reason: AGITATION Haloperidol Lactate (Haldol Inj) 5 mg IM Q4H PRN PRN Reason: Severe Aggression Hydroxyzine Pamoate (Vistaril) 50 mg PO Q6H PRN PRN Reason: ANXIETY Loperamide HCl (Imodium Capsule) 2 mg PO Q6H PRN PRN Reason: DIARRHEA Lorazepam (Ativan) 2 mg IM Q4H PRN PRN Reason: Severe Aggression Multivitamins Therapeutic (Multivitamin Tab) 1 tab PO DAILY [facility] Last Admin: 12/02/19 08:46 Dose: 1 tab Documented by: Nicotine (Nicoderm 21 Mg Patch) 1 patch TRANSDERMA DAILY PRN PRN Reason: NICOTINE WITHDRAWAL Nicotine Polacrilex (Nicorette) 2 mg BUCCAL Q2H PRN PRN Reason: NICOTINE WITHDRAWAL Olanzapine (Zyprexa Zydis) 5 mg PO Q4H PRN PRN Reason: Agitation/Psychosis Ondansetron HCl (Zofran) 4 mg PO Q8H PRN PRN Reason: NAUSEA Last Admin: 11/29/19 17:13 Dose: 4 mg Documented by: Thiamine Mononitrate (Vitamin B-1) 100 mg PO DAILY [facility] Last Admin: 12/02/19 08:46 Dose: 100 mg Documented by: Trazodone HCl (Desyrel) 50 mg PO BEDTIME PRN PRN Reason: SLEEP Mental Status Exam MSE Comments: Mood is more upbeat and affect now variegated and appropriate. Thought processes are integrated and free of any racing, blocking or looseness of association. She is less passive-aggressive today; she actually looks me in the eye and laughs at my jokes, testing higher function. Speech is of normal rate and volume, without dysarthria, aprosody or pressure. There is no evidence of psychosis, such as hallucinations, delusions or ideas of reference. She is cognitively intact and very bright but says she feels all right about surviving. She was never homicidal. She is gaining insight and judgment and denies suicidal ideation. She exhibits no odd behavior. Vitals/I&O/Wt Last Vital Signs Temp 98.4 F 12/02/19 06:00 Pulse 78 12/02/19 06:00 Resp 17 12/02/19 06:00 BP 101/65 12/02/19 06:00 Pulse Ox 99 12/02/19 06:00 Physical Exam Narrative: EXAM NARRATIVE: Const no acute distress and patient oriented x3 HENMT oropharynx normal Neck/C-Spine no JVD Resp normal respiratory effort and clear to auscultation bilaterally AUSCULTATION: clear to auscultation bilaterally Cardio no JVD, regular rhythm, S1 normal heart sound present, S2 normal heart sound present and No murmurs present (Cardio) RHYTHM: regular rhythm HEART SOUNDS: S1 normal heart sound present and S2 normal heart sound present GI Normal to inspection, nondistended, normoactive bowel sounds present, Soft to palpation and non-tender PALPATION: Soft to palpation Extremity no joint enlargement and no pedal edema Neuro patient oriented x3 and moves all extremities Skin no rashes or lesions noted Data NPU : 11/30/19 05:19 11/30/19 05:19 Micro: Microbiology 11/29/19 19:50 Parasite Antigen Panel - Final Stool - Stool Aspirate Microbiology 11/29/19 19:50 Stool - Stool Aspirate Parasite Antigen Panel - Final Involuntary Hold Information 96 Hour Hold: 96 Hour Involuntary Admission: Yes 96 Hour Hold Ending Date: 12/04/19 96 Hour Hold Ending Time: 12:00 Attestations NPU Medical Necessity Statement*: I anticipate 3-4 additional midnights. Time Spent in Patient Care: 16 - 35 minutes (>than 50% of time spent in counselling and/or direct pt care on unit) . Coding Level of Care Code Acute Band Manager for [facility] Fwd
[2019-12-02 14:00] VITALS: BP 99/63; PULSE 70; RESP 18; TEMP 37.2; O2SAT 97
[2019-12-02 19:43] VITALS: BP 96/60; PULSE 76; RESP 16; TEMP 37.1; O2SAT 97
[2019-12-03 05:49] VITALS: BP 107/72; PULSE 69; RESP 17; TEMP 36.8; O2SAT 99
[2019-12-03] MEDS: multivitamin therapeutic Tablet 1 TAB PO (08:48)
[2019-12-03] MEDS: thiamine 100 mg Tablet PO (08:48)
--- NOTE | 2019-12-03 13:34 | PM.NPN ---
Subjective NPU Subjective: Interval history: Misty presented today reporting that she does not believe drugs were involved in her presentation. She denied drug use but could not explain her apparent cognitive limitations. Staff report that she has had trouble with oddity for some time but were unable to clarify whether this is a thought disorder or possibly cluster a traits. She is aware that her 96 hour hold as of tomorrow. She is not interested in trying any medications. She endorsed the plan to [facility] and expressed concerns that they not kicked me out for dumb reasons. She reported she is eating and sleeping fine. Mental Status Exam MSE Comments: This is an overweight white female with adequate address, limited grooming and contact. No abnormal movements except for mild psychomotor retardation. Cooperative with exam in no acute distress. Speech was decreased rate and volume. Mood described as okay, affect flat. Thought process mostly organized. Thought content: Patient denied any suicidal or homicidal ideations, no delusions reported noted, she denied any auditory or visual hallucinations. Attention and concentration were intact and memory mostly reliable and none were formally tested. She is alert and oriented ?3. Insight and judgment are limited, but improving. Vitals/I&O/Wt Last Vital Signs Temp 98.3 F 12/03/19 05:49 Pulse 69 12/03/19 05:49 Resp 17 12/03/19 05:49 BP 107/72 12/03/19 05:49 Pulse Ox 99 12/03/19 05:49 Data NPU : 11/30/19 05:19 11/30/19 05:19 A&P Assessment and plan (1) Depressive disorder, not elsewhere classified: Status: Acute (2) Mushroom poisoning: Status: Acute Qualifiers: Encounter type: initial encounter Injury intent: undetermined intent Qualified Code(s): T62.0X4A - Toxic effect of ingested mushrooms, undetermined, initial encounter (3) Thought disorder: Status: Acute Additional A&P Information This is a 29-year-old white female with question of thought disorder versus cluster a traits versus possible drug use with mine altering substances that might not show up on drug screen who is ending her 96 hour hold without clear evidence of risk of harm to self or others. 1. Continue current medication. 2. Continue every 15 minute checks for safety. 3. Encourage individual, group and milieu therapy. 4. Encourage follow-up with aftercare as well as exploration of addiction services if warranted. Involuntary Hold Information 96 Hour Hold: 96 Hour Involuntary Admission: Yes 96 Hour Hold Ending Date: 12/04/19 96 Hour Hold Ending Time: 12:00 Attestations NPU Medical Necessity Statement*: Inpatient hospitalization is medically necessary and the clinically appropriate intervention at this time. We will continue to offer medications. Likely length of stay 1-3 days. We'll plan for discharge tomorrow. Coding Level of Care Code Acute Sign Carpenter for [facility] Diagnoses Depressive disorder, not elsewhere classified F32.9 Mushroom poisoning T62.0X4A Encounter type: initial encounter Injury intent: undetermined intent Thought disorder R41.89
[2019-12-03 14:00] VITALS: BP 85/56; PULSE 72; RESP 18; TEMP 37.2; O2SAT 98
[2019-12-03 22:00] VITALS: BP 93/60; PULSE 78; RESP 16; TEMP 37.2; O2SAT 96
[2019-12-04 06:00] VITALS: BP 103/70; PULSE 75; RESP 18; TEMP 36.7; O2SAT 96
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
[2019-12-04] MEDS: thiamine 100 mg Tablet PO (08:36)
[2019-12-04] MEDS: multivitamin therapeutic Tablet 1 TAB PO (08:36)
[2019-12-04 08:41] VITALS: BP 103/70; PULSE 75; RESP 18; TEMP 36.7; O2SAT 96
== END 2019-12-04 10:27 | disposition home or self-care (01) | DRG 918 ==
LOC: ER 12:48 → MEDSURG 13:34 → NP 11-30 09:46
PROVIDERS: Admitting Provider Student in an Organized Health Care Education/Training Program; Emergency Provider Emergency Medicine; PCP Family Medicine; Visit Provider Psychiatry & Neurology Psychiatry
DX: T62.0X4A Toxic effect of ingested mushrooms, undetermined, initial encounter (principal); F32.9 Major depressive disorder, single episode, unspecified; Y92.9 Unspecified place or not applicable; Z59.0 Homelessness; E86.0 Dehydration; E87.6 Hypokalemia
CPT/HCPCS: 12345; 36415; 36600; 80051; 80053; 80156; 80164; 80178; 80185; 80306; 80307; 81001; 82009; 82550; 82810; 83605; 83690; 83735; 83986; 84703; 85025; 85610; 85730; 87493; 87506; 93005; 96375; 99284; G0378; J2405; J3480; J7030; Q0162